=== PATIENT | male | born 1970 | race Caucasian/White ===

== ENCOUNTER 2020-01-24 08:12 | Emergency (ER) | payer MEDICAID ==
[~2020-01-24] VITALS: Ht 175.3 cm; Wt 90.9 kg
[~2020-01-24 08:12] MED LIST: ETOMIDATE 2 MG/ML 10 ML VIAL ONE; FLUT110HFA IH; METO25 PO; OMEP20 PO; PRED20 PO; ROCURONIUM BROMIDE 10 MG/ML 5 ML VIAL ONE
[2020-01-24] MEDS ORDERED: IOVERSOL 350 MG/ML 100 ML VIAL ONE (08:26)
[2020-01-24] MEDS ORDERED: SODIUM CHLORIDE 0.9% 100 ML ONE (08:26)
[2020-01-24] MEDS ORDERED: TraMADol HCL 50 MG TABLET PO ONE ×2 (08:45→10:30)
[2020-01-24 08:55] LABS: COVID AG,FIA SOURCE NASOPHARYNGEAL
[2020-01-24 08:57] LABS: BASOPHILS % (AUTO) 0.7 % (0.0-2.0); EOSINOPHILS % (AUTO) 1.6 % (1.0-6.0); HEMATOCRIT 44.5 % (41-53); HEMOGLOBIN 15.1 g/dL (13.5-17.5); LYMPHOCYTES # (AUTO) 1.3 K/uL (1.0-4.8); LYMPHOCYTES % (AUTO) 9.6 % (22.0-44.0); MEAN CORPUSCULAR HEMOGLOBIN 30.9 pg (26.0-34.0); MEAN CORPUSCULAR HGB CONC 33.9 G/dL (31.0-37.0); MEAN CORPUSCULAR VOLUME 91 fL (80-100); MONOCYTES # (AUTO) 1.1 K/uL (0.1-1.0); NEUTROPHILS # (AUTO) 10.8 K/uL (1.8-7.7); NEUTROPHILS % (AUTO) 80.1 % (40.0-70.0); PLATELET COUNT (AUTO) 179 K/uL (150-450); RED BLOOD CELL COUNT(AUTO) 4.89 MIL/uL (4.50-5.90); RED CELL DISTRIBUTION WIDTH 14.2 % (11.5-14.5)
[2020-01-24 09:06] LABS: CALCIUM, TOTAL 8.2 mg/dL (8.8-10.5); CREATININE 1.56 mg/dL (0.60-1.30); POTASSIUM 3.1 mmol/L (3.5-5.1)
[2020-01-24] MEDS ORDERED: ONDANSETRON HCL 4 MG/2 ML VIAL IVP ONE (10:30)
[2020-01-24 12:25] VITALS: BP 160/104
== END 2020-01-24 13:10 | disposition short-term general hospital (02) ==
LOC: EMS 08:15
DX: M31.30 Wegener's granulomatosis without renal involvement (principal); J96.90 Respiratory failure, unspecified, unspecified whether with hypoxia or hypercapnia; I10 Essential (primary) hypertension; Z88.5 Allergy status to narcotic agent; Z88.6 Allergy status to analgesic agent; Z88.8 Allergy status to other drugs, medicaments and biological substances; Z79.899 Other long term (current) drug therapy; Z20.828 Contact with and (suspected) exposure to other viral communicable diseases
CPT/HCPCS: 36415; 71045; 71275; 80048; 84484; 85025; 87426; 93005; 96374; 99285; J2405; J7050; Q9967